=== PATIENT | male | born 1970 | race Caucasian/White ===

== ENCOUNTER 2017-06-08 15:15 | Emergency (ER) | payer SELFPAY ==
[~2017-06-08] VITALS: Ht 175.3 cm; Wt 61.0 kg
[~2017-06-08 15:15] MED LIST: PERCOCET 5/325M1 TAB PO
[2017-06-08] MEDS ORDERED: CEPHALEXIN500 MG PO (16:10)
[2017-06-08] MEDS ORDERED: BACTRIM DS1 TAB PO (16:10)
[2017-06-08 16:23] VITALS: BP 135/77
== END 2017-06-08 16:30 | disposition home or self-care (01) | DRG 603 ==
LOC: ED 15:15
PROC: 0H9EXZZ Drainage of Left Lower Arm Skin, External Approach (ICD-10-PCS; principal; 2017-06-08)
DX: L02.414 Cutaneous abscess of left upper limb (principal); B95.62 Methicillin resistant Staphylococcus aureus infection as the cause of diseases classified elsewhere; M79.602 Pain in left arm

== ENCOUNTER 2018-11-23 01:19 | Emergency (ER) | payer SELFPAY ==
[~2018-11-23] VITALS: Ht 175.3 cm; Wt 66.0 kg
[~2018-11-23 01:19] MED LIST changes: +BACTRIM DS1 TAB PO; +CEPHALEXIN500 MG PO; +COLACE100 MG PO; +FLEXERIL PO; +MOTRIN800 MG PO; +TRAMADOL HYDROC50 MG PO
[2018-11-23] MEDS ORDERED: CODEINE/GUAIFEN1 SOL PO (02:31)
[2018-11-23] MEDS ORDERED: PROVENTIL HFA IN (02:32)
[2018-11-23 02:43] VITALS: BP 120/63
== END 2018-11-23 02:42 | disposition home or self-care (01) | DRG 203 ==
LOC: ED 01:19
DX: J40 Bronchitis, not specified as acute or chronic (principal); R05 Cough; R09.89 Other specified symptoms and signs involving the circulatory and respiratory systems; R00.1 Bradycardia, unspecified

== ENCOUNTER 2022-04-04 13:22 | Emergency (ER) | payer OTHER ==
[~2022-04-04] VITALS: Ht 175.3 cm; Wt 65.7 kg
[~2022-04-04 13:22] MED LIST changes: +CODEINE/GUAIFEN1 SOL PO; +PROVENTIL HFA IN
[2022-04-04 13:46] LABS: URINE BILIRUBIN - DIPSTICK NEGATIVE (NEGATIVE); URINE BLOOD DIPSTICK NEGATIVE (NEGATIVE); URINE CLARITY CLEAR; URINE COLOR YELLOW; URINE GLUCOSE - DIPSTICK NEGATIVE (NEGATIVE); URINE KETONE NEGATIVE (NEGATIVE); URINE LEUK ESTERASE NEGATIVE (Negative); URINE NITRITE - DIPSTICK NEGATIVE (Negative); URINE PROTEIN - DIPSTICK NEGATIVE (NEG-TRACE); URINE SPECIFIC GRAVITY 1.015
[2022-04-04] MEDS ORDERED: METHOCARBAMOL500 MG PO (16:22)
[2022-04-04] MEDS ORDERED: NAPROXEN500 MG PO (16:22)
[2022-04-04 16:27] VITALS: BP 144/106
== END 2022-04-04 16:37 | disposition home or self-care (01) | DRG 563 ==
LOC: ED 13:22
PROVIDERS: Nurse Practitioner
DX: S29.012A Strain of muscle and tendon of back wall of thorax, initial encounter (principal); S39.012A Strain of muscle, fascia and tendon of lower back, initial encounter; V44.5XXA Car driver injured in collision with heavy transport vehicle or bus in traffic accident, initial encounter